=== PATIENT | female | born 1985 | race Caucasian/White ===

== ENCOUNTER → 2021-11-12 16:04 | Outpatient (CLI) | payer OTHER, MEDICAID, SELFPAY ==
--- NOTE | 2021-11-12 16:07 | DI.MRI.S_ITS ---
PROCEDURE: MR ANKLE RT WO CON INDICATIONS: Ankle injury. TECHNIQUE: Noncontrast sagittal T1 spin echo and T2 fast spin echo with fat saturation, axial proton density fast spin echo and T2 fast spin echo with fat saturation, coronal T1 spin echo and T2 fast spin echo with fat saturation through the ankle/hindfoot. COMPARISON: None. FINDINGS: Image quality: Excellent. Bones and joints: Moderate ill-defined T2 signal elevation within the lateral talar dome, as well as the distal fibula is present, indicating contusion, given the history of recent trauma. No hindfoot coalitions. No osteochondral injuries of the talar dome. Small ankle joint effusion. Medial structures: The posterior tibialis, flexor digitorum longus, and flexor hallucis longus tendons are intact. Small amount of fluid surrounds the tibialis posterior, flexor digitorum longus, and flexor hallucis longus tendons. The posterior tibial neurovascular bundle appears normal within the tarsal tunnel, without extrinsic mass effect. The deep layer (anterior and posterior tibiotalar ligaments) and superficial layer (tibionavicular, tibiospring, and tibiocalcaneal ligaments) of the deltoid ligament appear normal. The spring ligament components (superomedial calcaneonavicular, medioplantar oblique calcaneonavicular, and inferoplantar longitudinal ligaments) are intact. Lateral structures: The anterior talofibular ligament demonstrates moderate internal and surrounding T2 signal elevation, consistent with sprain. The calcaneofibular, and posterior talofibular ligaments appear intact. More superiorly, the anterior and posterior tibiofibular ligaments appear intact, as is the intermalleolar ligament. The tibiofibular syndesmosis is normal in width at 2 mm or less. The peroneus longus and brevis tendons demonstrate normal location and small amount of surrounding fluid. Adjacent bony peroneal tubercle and retrotrochlear prominence are normal in size. The sinus tarsi demonstrates normal fatty signal, without edema, fibrosis, or cyst formation. Visualized sinus tarsi components (cervical ligament, interosseous talocalcaneal ligament, roots of the inferior extensor retinaculum) appear normal. The calcaneonavicular and calcaneocuboid components of the bifurcate ligament appear intact. The dorsal calcaneocuboid ligament appears intact. Anterior structures: The tibialis anterior, extensor hallucis longus, and extensor digitorum longus tendons appear intact. The dorsal talonavicular ligament appears intact. Posterior and plantar structures: Achilles tendon is intact. Medial and lateral bands of the plantar fascia are of normal thickness. No abductor digiti quinti muscle atrophy to suggest Yoder neuropathy. IMPRESSION: 1. Contusion within the lateral talus and distal fibula. 2. Anterior talofibular ligament sprain. 3. Medial and lateral flexor tenosynovitis. Dictated by: Ricardo Zaldivar M.D. on 11/13/2021 at 13:19 Approved by: Ricardo Zaldivar M.D. on 11/13/2021 at 13:21
== END ==
PROVIDERS: Referring Provider Family Medicine; Visit Provider Family Medicine
DX: L03.115 Cellulitis of right lower limb (principal); M25.571 Pain in right ankle and joints of right foot; S80.11XA Contusion of right lower leg, initial encounter; S93.491A Sprain of other ligament of right ankle, initial encounter; M65.871 Other synovitis and tenosynovitis, right ankle and foot
CPT/HCPCS: 73721

== ENCOUNTER 2021-11-21 17:15 | Emergency (ER) | payer OTHER, MEDICAID, SELFPAY ==
[2021-11-21 17:26] VITALS: BP 124/78; PULSE 100; RESP 20; TEMP 36.9; O2SAT 100; BMI 26.9
--- NOTE | 2021-11-21 18:01 | ED_ITS ---
HPI - Extremity Injury (Lower) <HOWARD Tse - Last Filed: 11/21/21 20:28> General Chief Complaint: Extremity Injury, Lower Stated Complaint: rt ankle swelliing Time Seen by Provider: 11/21/21 17:44 Source: patient Mode of arrival: Ambulatory History of Present Illness HPI Narrative: 35-year-old female presents to emergency department with persistent right ankle swelling, warmth and radiating pain x2 weeks. Patient states she was stepped on by her horse that resulted in wound to her right lateral ankle that was treated with cephalexin by her PCP. Patient reports that she had the wound cultured and it came back negative for MRSA. Patient had a MRI of the ankle but her PCP has not received the results. MRI results reveal a sprain/strain of the ankle. Patient is concerned that she may have had an avulsion fracture and that part of the bone is floating around in the ankle, which is causing the pain. Patient has MS and has been with an active flare since March 2021. Patient states that she started taking her prednisone earlier today and typically takes 20 mg 3 times daily x3 days. Related Data Previous Rx's Medication Instructions Recorded oxycodone-acetaminophen 5 mg-325 1 tab PO Q8H PRN pain #10 tabs 11/21/21 mg tablet (Percocet) oxycodone-acetaminophen 5 mg-325 1 tab PO Q8H PRN pain #10 tabs 11/21/21 mg tablet (Percocet) Allergies Allergy/AdvReac Type Severity Reaction Status Date / Time glatiramer (copolymer 1) Allergy Verified 11/21/21 17:32 [From Copaxone] hydrocodone Allergy Hives Verified 11/21/21 17:32 latex Allergy Verified 11/21/21 17:32 NSAIDS (Non-Steroidal Allergy Swelling Verified 11/21/21 17:32 Anti-Inflamma all over Penicillins Allergy Hives Verified 11/21/21 17:32 Review of Systems <HOWARD Tse - Last Filed: 11/21/21 20:28> Review of Systems Narrative: Patient denies current fever, chills, rash, muscle or body aches, muscle cramps, joint swelling, numbness & tingling or limb weakness. Constitutional Constitutional: Reports system reviewed and no additional complaints, except as documented Eyes Eyes: Reports system reviewed and no additional complaints, except as documented Cardiovascular Cardiovascular: Denies dyspnea Respiratory Respiratory: Reports system reviewed and no additional complaints, except as documented and Denies dyspnea Musculoskeletal Comments: ANKLE: There is mild swelling and warmth to lateral malleolus but no bruising or asymmetry. There is tenderness to general palpation. Sensation grossly intact. There is no tenderness over the medial malleolus. The anterior mortise is non-tender. Flexion and extension is intact. Unable to test for stability or laxity due to pain. The contralateral ankle exam is unremarkable. Patient History <HOWARD Tse - Last Filed: 11/21/21 20:28> Social History Smoking Status: Current every day smoker Smoking Status: Current every day smoker tobacco type: cigarettes alcohol intake frequency: holidays/special occasions only Substance Use Type: does not use Exam <HOWARD Tse - Last Filed: 11/21/21 20:28> Narrative Exam Narrative: ANKLE: There is swelling of lateral ankle but no bruising or asymmetry. Warmth noted to right lateral malleolus. Skin intact with no erythema or fluctuance. There is mild tenderness to general palpation. Sensation grossly intact. There is no tenderness over the medial malleolus, knee or proximal tib/fib. The anterior mortise is non-tender. Flexion and extension is intact. Unable to test for stability or laxity due to pain. The contralateral ankle exam is unremarkable. Initial Vital Signs Initial Vital Signs: Vital Signs Temperature 98.4 F 11/21/21 17:26 Pulse Rate 100 H 11/21/21 17:26 Respiratory Rate 20 11/21/21 17:26 Blood Pressure 124/78 11/21/21 17:26 Pulse Oximetry 100 11/21/21 17:26 Oxygen Delivery Method 11/21/21 17:26 Reviewed Const General: cooperative and healthy appearing Eyes General: Yes appearance normal, both eyes and all related structures Resp Effort & Inspection: normal respiratory effort Skin General: warm Wounds: no wounds Extrem Right lower extremity: ankle Details: tenderness, swelling and warmth <Armando Bowie MD - Last Filed: 12/09/21 12:38> Initial Vital Signs Initial Vital Signs: Vital Signs Temperature 98.4 F 11/21/21 17:26 Pulse Rate 100 H 11/21/21 17:26 Respiratory Rate 20 11/21/21 17:26 Blood Pressure 124/78 11/21/21 17:26 Pulse Oximetry 100 11/21/21 17:26 Oxygen Delivery Method 11/21/21 17:26 Procedures <HOWARD Tse - Last Filed: 11/21/21 20:28> Orthopedic Splinting/Casting Injury #1: Side: right Other Orthopedic Equipment: other Post splinting neuro exam: intact Post splinting vascular exam: intact Placed by: Nursing Additional Comments: Ortho boot Course <HOWARD Tse - Last Filed: 11/21/21 20:28> Orders Ordered: ED Orders 11/21/21 18:01 XR ankle RT 2V Stat Vital Signs Vital signs: Vital Signs - 8 hr 11/21/21 17:26 Temperature 98.4 F Pulse Rate 100 H Respiratory Rate 20 Blood Pressure 124/78 Pulse Oximetry 100 Oxygen Delivery Method Room Air <Armando Bowie MD - Last Filed: 12/09/21 12:38> Orders Ordered: ED Orders 11/21/21 18:01 XR ankle RT 2V Stat Vital Signs Vital signs: Vital Signs - 8 hr 11/21/21 17:26 Temperature 98.4 F Pulse Rate 100 H Respiratory Rate 20 Blood Pressure 124/78 Pulse Oximetry 100 Oxygen Delivery Method Room Air MDM - Extremity Injury (Lower) <HOWARD Tse - Last Filed: 11/21/21 20:28> Differential Diagnosis Differential diagnosis: Likely ankle sprain and strain Imaging Data Extremity x-ray #1: Radiologist's Impression: [address] [address] XRay Report Signed Patient: Francis Almanzar MR#: [id number] : 1985 Acct:[id number] Age/Sex: 35 / F Date of Service: 11/21/21 Loc: ED Accession Number: [id number] ?? Procedure: XR ankle RT 2V Ordering Provider: Miah Paniagua PROCEDURE:? XR ANKLE RT 2V ? INDICATIONS:? right ankle injury and swelling ? TECHNIQUE:? 2 views of the ankle were acquired.? ? COMPARISON:? None. ? FINDINGS:? ? Bones:? No acute fractures or dislocations.? No reactive changes of subacute fracture healing.? Ankle mortise is normally aligned.? No suspicious bony lesions.? ? Soft tissues:? No tibiotalar joint effusion.? Achilles tendon appears normal.? Soft tissue swelling surrounding the left ankle predominantly over the lateral malleolus.? ? ? IMPRESSION:? Left ankle soft tissue swelling without underlying fracture or dislocation.? No reactive changes of subacute fracture healing identified. ? If there are persistent symptoms or clinical suspicion for pathology, then repeat radiographs or advanced imaging (CT or MRI) may be considered for further evaluation. ? Dictated by: Angel Matt M.D. on 11/21/2021 at 18:40 ? ? Approved by: Angel Matt M.D. on 11/21/2021 at 18:41 ? MDM Narrative Medical decision making narrative: 35-year-old female with persistent swelling of right ankle after being stepped on by her horse approximately 2 weeks ago. Initial wound was cultured for MRSA and was negative, treated with cephalexin and has now closed up with no current signs of infection including erythema or fluctuance. Review of MRI shows no acute fractures but positive for sprain and strain of right ankle. Ankle x-ray obtained to ensure there was no avulsion fracture and floating bones. For patient comfort, and ortho boot was applied. Discussed rice and aggressive rehabilitation including elevation until swelling decreases. Offered a limited amount pain medication. Instructed patient to follow up with scheduled Orthopedics next week. Patient was agreeable to course of action. Discharge Plan Departure Patient Disposition: Home Clinical Impression: Ankle sprain and strain Instructions: DI for Ankle Sprain, DI for Ankle Pain Activity Restrictions/Additional Instructions: You have been diagnosed with a right ankle sprain. Your x-ray appears normal and there is no floating bone in that area. I suspect the pain you are experiencing is a combination of the swelling of your foot and ankle from your injury coupled with your MS. There is no evidence a current infection and therefore antibiotics will not be prescribed. Please use the ortho boot as needed, coupled with rest, ice, compression and elevation. This may take several weeks to heal up. Please follow-up with [facility] next week. *What to do: *Please continue to take your regular medications as directed. [ ] New medication prescriptions sent to your pharmacy: [ ] [ ] New medication written as a paper prescription [x ] No new medications given *Please follow up with your primary care provider in 2-3 days, call for an appointment. Let them know you were seen in the Emergency Department and that we ask that you be seen in follow up. We will electronically transmit a record of today's note if your PCP is in our system *If you do not have a primary care provider please contact the [facility] Resource line at [phone]. They will ask some questions about your medical history and help get you set up with a doctor in the community. *Return to Emergency Department if you should have any new, worsening or concerning symptoms, such as [fever greater than 101 F, shaking chills, worsening pain, persistent vomiting or other bothersome symptoms] Prescriptions: New oxycodone-acetaminophen [Percocet] 5-325 mg tablet 1 tab PO Q8H PRN (Reason: pain) Qty: 10 0RF oxycodone-acetaminophen [Percocet] 5-325 mg tablet 1 tab PO Q8H PRN (Reason: pain) Qty: 10 0RF Referrals: [facility] [Provider Group] Ivonne Barajas DO [Primary Care Provider] - Visit Report Forms: Patient Portal/API <Armando Bowie MD - Last Filed: 12/09/21 12:38> Cosign ED Attending Cesiliaature Attestation: I was immediately available for consultation of this patient was seen and evaluated by the APC in the department.
--- NOTE | 2021-11-21 18:01 | DI.RAD.S_ITS ---
PROCEDURE: XR ANKLE RT 2V INDICATIONS: right ankle injury and swelling TECHNIQUE: 2 views of the ankle were acquired. COMPARISON: None. FINDINGS: Bones: No acute fractures or dislocations. No reactive changes of subacute fracture healing. Ankle mortise is normally aligned. No suspicious bony lesions. Soft tissues: No tibiotalar joint effusion. Achilles tendon appears normal. Soft tissue swelling surrounding the left ankle predominantly over the lateral malleolus. IMPRESSION: Left ankle soft tissue swelling without underlying fracture or dislocation. No reactive changes of subacute fracture healing identified. If there are persistent symptoms or clinical suspicion for pathology, then repeat radiographs or advanced imaging (CT or MRI) may be considered for further evaluation. Dictated by: Angel Matt M.D. on 11/21/2021 at 18:40 Approved by: Angel Matt M.D. on 11/21/2021 at 18:41
== END 2021-11-21 19:10 | disposition home or self-care (01) ==
PROVIDERS: Emergency Provider Registered Nurse; PCP Family Medicine; Referring Provider Family Medicine
DX: S93.401A Sprain of unspecified ligament of right ankle, initial encounter (principal); S96.911A Strain of unspecified muscle and tendon at ankle and foot level, right foot, initial encounter; W55.19XA Other contact with horse, initial encounter
CPT/HCPCS: 73600; 99281; 99283

== ENCOUNTER 2022-08-29 13:48 | Emergency (ER) | payer OTHER, MEDICAID, SELFPAY ==
[2022-08-29 13:53] VITALS: BP 130/74; PULSE 121; RESP 18; TEMP 36.6; O2SAT 100; BMI 29.8
--- NOTE | 2022-08-29 14:00 | DI.RAD.S_ITS ---
PROCEDURE: XR SHOULDER RT MIN 2V INDICATIONS: injury TECHNIQUE: 3 views of the shoulder were acquired. COMPARISON: None. FINDINGS: Bones: No fractures or dislocations. No suspicious bony lesions. Visualized ribs appear intact. Soft tissues: No suspicious soft tissue calcifications. IMPRESSION: No acute osseous abnormality. Dictated by: Manfred Lynn D.O. on 08/29/2022 at 13:13 Approved by: Manfred Lynn D.O. on 08/29/2022 at 13:14
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
--- NOTE | 2022-08-29 15:00 | PC.NURSE ---
Pt c/o R shoulder pain. Able to move joint, limited by pain. 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
--- NOTE | 2022-08-29 15:40 | DI.RAD.S_ITS ---
PROCEDURE: XR CLAVICLE RT INDICATIONS: Medial clavicle tender/bony abnormality TECHNIQUE: 2 views of the clavicle were acquired. COMPARISON: None. FINDINGS: Bones: No fractures or dislocations. No suspicious bony lesions. Soft tissues: No suspicious soft tissue calcifications. IMPRESSION: No acute osseous abnormality. Dictated by: Manfred Lynn D.O. on 08/29/2022 at 15:10 Approved by: Manfred Lynn D.O. on 08/29/2022 at 15:11
--- NOTE | 2022-08-29 15:40 | PC.NURSE ---
Pt declines ice at this time
[2022-08-29] MEDS: BACLOFEN 10 MG TABLET PO (16:00)
[2022-08-29 16:30] VITALS: BP 131/70; PULSE 89; RESP 18; O2SAT 100
== END 2022-08-29 16:30 | disposition home or self-care (01) ==
PROVIDERS: Emergency Provider Student in an Organized Health Care Education/Training Program; PCP Family Medicine
DX: S46.001A Unspecified injury of muscle(s) and tendon(s) of the rotator cuff of right shoulder, initial encounter (principal); M62.838 Other muscle spasm; S43.491A Other sprain of right shoulder joint, initial encounter; X58.XXXA Exposure to other specified factors, initial encounter
CPT/HCPCS: 73000; 73030; 99283; 99284